=== PATIENT | female | born 1970 | race Two or more races ===

== ENCOUNTER 2016-12-15 09:57 | Emergency (ER) | payer MEDICARE, MEDICAID ==
[~2016-12-15] VITALS: Ht 157.5 cm; Wt 72.6 kg
[~2016-12-15 09:57] MED LIST: ALLO100T PO; ALPR0.5T7 PO; ARIP2TAB PO; CALC667T2 PO; CARI-277 PO; CARV6.25 PO; CLON05T PO; DICY20TA64 PO; DIP25C PO; DOCU-94 PO; ESCI10TA53 PO; FURO80TA3 PO; HYDR-2601 PO; HYDR-3682 PO; HYDR-4065 PO; HYDR50TA69 PO; HYOS0.1264 PO; METO5TAB2 PO; METO5TAB56 PO; MORP30TA PO; ONDA4SOL2 PO; PROM25TA5 PO; QUET200T3 PO; SERT-160 PO; SERT-274 PO; TRAZ100T2 PO; VEN75XRT PO; ZOLP10TA PO
[2016-12-15 12:39] LABS: Basophils # (auto) 0 uL; Eosinophils # (auto) 0.1 uL; Eosinophils % (auto) 0.7 % (0.0-7.0); Lymphocytes # (auto) 1.3 uL; Lymphocytes % (auto) 11.8 % (10.0-50.0); Mean Corpuscular Hemoglobin 30.8 pg (28.0-32.0); Mean Corpuscular Hgb Conc. 32.6 g/dL (32.0-36.0); Mean Corpuscular Volume 94.2 fL (80.0-100.0); Mean Platelet Volume 7.6 fL (7.4-10.4); Monocytes # (auto) 0.3 uL; Monocytes % (auto) 2.4 % (0.0-12.0); Neutrophils # (auto) 9.1 uL; Neutrophils % (auto) 85.1 % (37.0-80.0); Platelet Count (auto) 298 10^3/uL (140-450); White Blood Cell 10.7 10^3/uL (4.4-10.8)
[2016-12-15 12:46] LABS: Albumin 3.9 g/dL (3.4-5.0); BUN/Creatinine Ratio 2.6; Bilirubin, Total 0.8 mg/dL (0.2-1.0); Calcium 9.4 mg/dL (8.5-10.1); Potassium 3.7 mmol/L (3.5-5.1); Total Protein 7.6 g/dL (6.4-8.2)
[2016-12-15] MEDS ORDERED: MORPHINE SULFATE 4 MG/ML SYRG IM ONE ×2 (14:30→18:45)
[2016-12-15] MEDS ORDERED: ONDANSETRON HCL 4 MG/2 ML VIAL IM ONE ×2 (14:30→19:00)
[2016-12-15] MEDS ORDERED: LORazepam 2MG/ML-1ML VIAL IM ONE (16:15)
[2016-12-15 19:59] VITALS: BP 113/71
== END 2016-12-15 19:59 | disposition home or self-care (01) ==
LOC: ER 09:57
DX: K57.30 Diverticulosis of large intestine without perforation or abscess without bleeding (principal); F17.210 Nicotine dependence, cigarettes, uncomplicated; F12.10 Cannabis abuse, uncomplicated; I13.2 Hypertensive heart and chronic kidney disease with heart failure and with stage 5 chronic kidney disease, or end stage renal disease; N18.6 End stage renal disease; I50.9 Heart failure, unspecified; M10.9 Gout, unspecified; E78.5 Hyperlipidemia, unspecified; Z90.49 Acquired absence of other specified parts of digestive tract; Z79.899 Other long term (current) drug therapy
CPT/HCPCS: 36415; 74176; 80053; 94761; 96372; 99285; J2060; J2270; J2405

== ENCOUNTER 2017-06-01 08:12 | Day surgery (SDC) | payer MEDICARE, MEDICAID ==
[2017-05-30 17:00] LABS: Basophils # (auto) 0 uL; Basophils % (auto) 0.7 % (0.0-2.0); Eosinophils # (auto) 0.4 uL; Eosinophils % (auto) 5.8 % (0.0-7.0); Hematocrit 35.7 % (36.0-46.0); Hemoglobin 11.5 g/dL (12.2-16.2); Lymphocytes # (auto) 1.3 uL; Lymphocytes % (auto) 18.5 % (10.0-50.0); Mean Corpuscular Hemoglobin 30.3 pg (28.0-32.0); Mean Corpuscular Hgb Conc. 32.3 g/dL (32.0-36.0); Monocytes # (auto) 0.5 uL; Monocytes % (auto) 7.2 % (0.0-12.0); Neutrophils # (auto) 4.6 uL; Neutrophils % (auto) 67.8 % (37.0-80.0); Nucleated Red Blood Cells % 0.2 %; Platelet Count (auto) 219 10^3/uL (140-450); Red Cell Distribution Width 15.6 % (11.8-14.3); White Blood Cell 6.8 10^3/uL (4.4-10.8)
[2017-05-30 17:22] LABS: Albumin 3.5 g/dL (3.4-5.0); Bilirubin, Total 0.5 mg/dL (0.2-1.0); Calcium 8.5 mg/dL (8.5-10.1)
[2017-05-30 17:23] LABS: INR 0.94 (0.9-1.15); Partial Thromboplastin Time 29.6 sec (22.64-33.71); Prothrombin Time 10.2 sec (9.37-12.3)
[~2017-06-01] VITALS: Ht 152.4 cm; Wt 79.4 kg
[~2017-06-01 08:12] MED LIST changes: -ALLO100T PO; -ARIP2TAB PO; -CARI-277 PO; -CLON05T PO; -DICY20TA64 PO; -DOCU-94 PO; -ESCI10TA53 PO; -HYDR-2601 PO; -HYDR-3682 PO; -HYDR-4065 PO; -HYDR50TA69 PO; -HYOS0.1264 PO; -METO5TAB56 PO; -MORP30TA PO; -PROM25TA5 PO; -QUET200T3 PO; -SERT-160 PO; -SERT-274 PO; -VEN75XRT PO; -ZOLP10TA PO
[2017-06-01] MEDS ORDERED: BUPIVACAINE 0.75% INJ 10ML MPV SDV IJ ONE (10:19)
[2017-06-01] MEDS ORDERED: ceFAZolin 1GM/50ML 50 ML IV ONE (10:28)
[2017-06-01] MEDS ORDERED: MIDAZOLAM HCL 1MG/1ML-2 ML VIAL ONE (10:33)
[2017-06-01] MEDS ORDERED: PROPOFOL 10 MG/ML 20 ML IV ONE (10:33)
[2017-06-01] MEDS ORDERED: fentaNYL CITRATE 100 MCG/2 ML VL ONE (10:33)
[2017-06-01] MEDS ORDERED: ONDANSETRON HCL 4 MG/2 ML VIAL IV ONE (11:30)
[2017-06-01] MEDS ORDERED: hydrALAZINE HCL 20 MG/ML VL IV PRN (11:30)
[2017-06-01] MEDS ORDERED: ePHEDrine SULFATE 50 MG/ML AMP IV PRN (11:30)
[2017-06-01] MEDS: HYDROmorphone HCL 2 MG/ML VL IV PRN ×2 (11:40→11:50)
[2017-06-01 12:30] VITALS: BP 125/70
[2017-06-02] MEDS: HYDROmorphone HCL 2 MG/ML VL IV PRN ×2 (12:05→12:15)
== END 2017-06-01 12:40 | disposition home or self-care (01) ==
LOC: SUR 08:12
PROVIDERS: ATTEND Podiatrist Foot & Ankle Surgery
DX: L72.0 Epidermal cyst (principal); N18.6 End stage renal disease; J45.909 Unspecified asthma, uncomplicated; I12.0 Hypertensive chronic kidney disease with stage 5 chronic kidney disease or end stage renal disease; Z99.2 Dependence on renal dialysis; G47.30 Sleep apnea, unspecified; D64.9 Anemia, unspecified; Z87.891 Personal history of nicotine dependence; J40 Bronchitis, not specified as acute or chronic; F31.9 Bipolar disorder, unspecified; F41.0 Panic disorder [episodic paroxysmal anxiety]; F41.9 Anxiety disorder, unspecified; F32.9 Major depressive disorder, single episode, unspecified
CPT/HCPCS: 11424; 36415; 80053; 84702; 85025; 85610; 85730; 87070; 87075; 87205; J0690; J1170; J2250; J2704; J3010; J3490